=== PATIENT | female | born 1955 | race Caucasian/White ===

== ENCOUNTER 2016-12-06 15:13 | Inpatient (IN) ==
[2016-12-06] MEDS ORDERED: ONDANSETRON 4 MG/2 ML VIAL IV STA (16:31)
[2016-12-06] MEDS ORDERED: HYDROmorphone 2 MG/1 ML VIAL IV STA (16:31)
[2016-12-06] MEDS ORDERED: PANTOPRAZOLE 40 MG VIAL IV STA (16:31)
[2016-12-06] MEDS ORDERED: ALUM/MAG/SIMETH/LIDO VISC 1:1 30 ML BOTTLE PO STA (16:31)
[2016-12-06] MEDS ORDERED: SODIUM CHLORIDE 0.9% 1,000 ML IV STA (16:31)
[2016-12-06] MEDS ORDERED: KETOROLAC 30 MG/1 ML VIAL IV STA (16:31)
--- NOTE | 2016-12-06 16:36 | EKG Report ---
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
[2016-12-06 16:40] LABS: Basophils # 0.1 10*3/uL (0.0-0.2); Basophils % 0.6 % (0.0-0.8); Eosinophils # 0.3 10*3/uL (0.0-0.87); Eosinophils % 1.6 % (0.00-10.9); Hematocrit 33.3 VOL% (35.7-47.0); Hemoglobin 9.8 GM/DL (12.0-16.0); Immature Granulocytes % 0.6 %; Lymphocytes # 1.8 10*3/uL (1.4-4.0); Mean Corpuscular HGB Conc 29.4 GM/DL (32-36); Mean Corpuscular Hemoglobin 19 PG (27-34); Mean Corpuscular Volume 65.8 FL (87-102); Mean Platelet Volume 9.5 FL (9.6-12.0); Monocytes # 0.8 10*3/uL (0.11-0.8); Monocytes % 4.9 % (1.7-12.7); Neutrophils # 13.1 10*3/uL (1.4-7.4); Neutrophils % 81.3 % (38.7-73.9); Platelet Count 436 T/CUMM (130-400); Red Blood Count 5.06 MC/CUMM (3.8-5.5); Red Cell Distribution Width 18.2 % (9.3-17.3); White Blood Count 16.1 T/CUMM (4-12)
[2016-12-06] MEDS ORDERED: HYDROmorphone 2 MG/1 ML VIAL ONE (17:02)
[2016-12-06] MEDS ORDERED: ONDANSETRON 4 MG/2 ML VIAL ONE (17:02)
[2016-12-06] MEDS ORDERED: KETOROLAC 30 MG/1 ML VIAL ONE (17:02)
[2016-12-06] MEDS ORDERED: PANTOPRAZOLE 40 MG VIAL IV ONE (17:02)
[2016-12-06] MEDS ORDERED: ALUM/MAG/SIMETH/LIDO VISC 1:1 30 ML BOTTLE PO ONE (17:03)
[2016-12-06 17:08] LABS: Alanine Aminotransferase 16 U/L (13-56); Albumin 3.6 G/DL (3.4-5.0); Alkaline Phosphatase 71 U/L (45-117); Amylase 40 U/L (25-115); Aspartate Amino Transferase 10 U/L (0-37); Bilirubin,Total < 0.39 MG/DL (0.2-1.0); Blood Urea Nitrogen 10 MG/DL (7-18); Glucose 120 MG/DL (74-106); Magnesium 1.9 MG/DL (1.8-2.4); Osmolality,Calculated 282.1 MOS/KG (273-304); Potassium 3.8 MMOL/L (3.5-5.1); Sodium 142 MMOL/L (136-145); Total Protein 6.8 G/DL (6.4-8.3); Troponin I Only < 0.015 NG/ML (0.00-0.045)
--- NOTE | 2016-12-06 17:18 | Emergency Department Note ---
IMarko Emily, am scribing for, and in the presence of, Mario Lozano MD 16: 43. Marta Morales Charles R, MD, personally performed the services described in this documentation, ascribed by Ronda Zhu in my presence, and it is both accurate and complete . Arrival - Arrival Chief Complaint: Abdominal / Flank Pain Stated Complaint: feels faint, very sick ED Nursing Triage Note: C/O HAVING ABD.PAIN THAT STARTED TODAY AT 1100, + NAUSEA., + VOMITING., DEIES HAVING DIARRHEA., DENIES HAVING INCREASE TIME, DENIES HAVING CHILLS , ALSO C/O HAVING CHEST PAIN THAT STARTED TODAY AROUND 1100 , DENIES HAVING SOB., + DIAPHRESIS, Mode of Arrival: Wheelchair Limitations: No Limitations Source: Patient, Significant other Time Seen by Provider: 12/06/16 16:10 - History of Present Illness HPI Narrative: Pt is a 61 y/o female who came to ED with c/o abdomen pain with N/V that started this morning around 10-11. Pt reports pain is around the umbilical region mainly and has some constipation. Pt has associated sxs of mild left, lower back pain, and has been straining with her emesis, in which having mild blood in vomit, her spouse. Pt denies hx of kidney stones, dysuria or hematuria. PMHx of NIDDM. Onset (ago): hour(s) Consistency: constant Severity: mild, moderate Severity scale (1-10): 4 Quality: aching Allergies/Adverse Reactions: Allergies Allergy/AdvReac Type Severity Reaction Status Date / Time No Known Allergies Allergy Unverified 12/06/16 15:24 Home Medications: Home Medications Medication Instructions Recorded Confirmed Type Cetirizine Tab [ZyrTEC Tab] 10 mg PO DAILY PRN 12/06/16 12/06/16 History Citalopram Hydrobromide 10 mg PO QPM 12/06/16 12/06/16 History [Citalopram HBr] Ibuprofen Tab [Motrin Tab] 200 mg PO BID 12/06/16 12/06/16 History metFORMIN [Glucophage] 500 mg PO BID W/MEALS 12/06/16 12/06/16 History Review of System - Review of System 12 point system: reviewed and no additional remarkable complaints except as stated - Review of System Constitutional: Absent: chills, fever Respiratory: Absent: respiratory distress Cardiovascular: Absent: chest pain Gastrointestinal: Present: abdominal pain, nausea, vomiting (with mild blood from straining), constipation. Absent: diarrhea Genitourinary female: Absent: dysuria, hematuria Musculoskeletal: Absent: arm pain, back pain, leg pain, neck pain Skin: Absent: rash Neurological: Absent: headache Medical,Surgical,& Family Hx - Medical History Endocrine: History of: Diabetes Mellitus (NIDDM) - Surgical History Surgical History: noncontributory - Family History Family History: noncontributory - Social History Smoking Status: Smoker, status unknown Frequency of Alcohol Use: None Type of Drug Use: None Marital Status: Lives With:: Spouse Functional capacity: independent ambulation Exam Vital Signs: Vital Signs Temperature 97.5 F L 12/06/16 16:40 Pulse Rate 95 H 12/06/16 16:40 Respiratory Rate 16 12/06/16 16:40 Blood Pressure 92/58 12/06/16 16:40 O2 Sat by Pulse Oximetry 97 12/06/16 15:20 - General General appearance: alert, in no apparent distress - Head Head exam: Present: atraumatic, normocephalic - Eye Eye exam: Present: PERRL, EOMI - ENT ENT exam: Present: mucous membranes moist. Absent: mucous membranes dry - Neck Neck exam: Present: full ROM. Absent: tenderness - Chest Chest inspection: Present: symmetric chest wall rise. Absent: tenderness - Respiratory Respiratory exam: Present: normal lung sounds bilaterally. Absent: respiratory distress - Cardiovascular Cardiovascular exam: Present: regular rate, normal rhythm, normal heart sounds - Abdominal Exam Abdominal exam: Present: soft, tenderness (generalized tenderness), normal bowel sounds. Absent: distention, guarding, rebound - Extremities Exam Extremities exam: Present: full ROM. Absent: tenderness, pedal edema - Back Exam Back exam: Present: full ROM, tenderness (bilateral lower flank pain; more so on left) - Neurological Exam Neurological exam: Present: alert, oriented X3, CN II-XII intact. Absent: motor sensory deficit - Psychiatric Psychiatric exam: Present: normal affect, normal mood - Skin Skin exam: Present: warm, dry Course - Consultations Consultation #1: Hospitalist will admit patient Time: 18:14 Results - Labs CBC & BMP: 12/06/16 16:28 12/06/16 16:28 Lab Results: I have reviewed the patients labs Labs: Laboratory Tests 12/06/16 16:28 WBC 16.1 H Hgb 9.8 L Hct 33.3 L MCV 65.8 L MCH 19 L MCHC 29.4 L RDW 18.2 H Plt Count 436 H MPV 9.5 L Neut % (Auto) 81.3 H Lymph % (Auto) 11.0 L Neut # (Auto) 13.1 H - Diagnostic Findings Procedure: CT Abdomen and Pelvis: image reviewed by me, report reviewed by me ( Enteritis with some small bowel dilatation inflammation small bowel) Critical Care Time Critical Care Time: Yes Total Critical Care Time: 60 Disposition Clinical Impression: Gastroenteritis, Abdominal pain, Nausea & vomiting, Hypotension, Volume depletion, Dehydration, Leukocytosis Case discussed with: patient, patient's family Disposition: Still a Patient Condition: Guarded Time of Disposition: 18:15
--- NOTE | 2016-12-06 17:25 | CT Report ---
CT abdomen pelvis wo con Indication: Abdominal pain/pelvic pain lower midline Comparison: None. Technique: CT of the abdomen and pelvis was performed without administration of intravenous contrast. Coronal and sagittal reformatted images were additionally created and submitted for review. The total DLP is 383 mGy*cm. Dose reduction: This CT exam was performed using one or more of the following dose reduction techniques: Automated exposure control, automated adjustment of the mA and/or KV according to patient size, or use of iterative reconstruction technique. Findings: Very minimal posterior basilar dependent atelectatic changes are noted bilaterally. Lung bases are otherwise clear. There is no pleural or pericardial effusion. ABDOMEN: Liver/Gallbladder: No intrahepatic or extra hepatic biliary ductal dilatation. Cholecystectomy. Unenhanced liver otherwise appears grossly within normal limits. Spleen: No acute findings. Pancreas: No acute findings. Adrenals: Within normal limits in appearance. Kidneys: Both kidneys are symmetric in size with no evidence of nephrolithiasis or hydronephrosis. There are several punctate calcific densities at the left hemipelvis in the vicinity of the left distal ureter but no hydroureter is evident, and this may represent phlebolith. Otherwise, no definite ureteral bladder calculi are identified. Bowel/mesentery: There is an short segment area of prominent small bowel dilatation within the left hemiabdomen measuring up to 3.9 cm. This area demonstrates minimal surrounding mesenteric fat stranding suggestive of high-grade partial obstruction, ileus or a focal infectious/inflammatory enteritis. There is no free fluid/air within the abdomen. There is no mesenteric adenopathy. The appendix appears normal. There is no free fluid/air within the abdomen. Moderate stool throughout the colon suggesting a degree of fecal stasis/constipation. Retroperitoneum: No evidence of aortic aneurysm or significant retroperitoneal adenopathy. PELVIS: No free fluid. Bladder appears grossly unremarkable. Uterus and ovaries appear grossly within normal limits for CT technique. No adenopathy. BONES: No acute or suspicious osseous abnormalities are identified. Moderate degenerative changes with disc space loss at L4-5 L5-S1 and facet arthropathy are noted. IMPRESSION: 1. Short segment moderate dilatation of small bowel within the left hemiabdomen may represent focal infectious/inflammatory enteritis changes, partial small bowel obstruction, focal ileus or, less likely, a closed loop obstruction. There is no definite transition point. Close clinical and imaging follow-up is recommended. 2. No other acute abnormality the abdomen/pelvis. 3. Multiple punctate calcific densities in the vicinity of the distal left ureter within the left hemipelvis without hydronephrosis are hydroureter may represent phleboliths. This can be assessed on follow-up studies for stability. 12/06/2016 5:13 PM PROCEDURE INTERPRETED AT [facility] DEPARTMENT OF RADIOLOGY Final Report Signed by: Yan Tabares
--- NOTE | 2016-12-06 17:47 | XRay Report ---
XR abdomen 2V Clinical Information: Midline lower abdominal pain Comparison: None Findings: Moderate stool is noted throughout the colon. There is suggestion of also mildly dilated small bowel within the left hemiabdomen with a few differential air-fluid levels which may represent ileus, enteritis or partial small bowel obstruction changes. There is no free air. Scattered fecal material is noted throughout colon, which is otherwise nondilated. No abnormal focal soft tissue masses or calcific densities are identified in the abdomen or pelvis. Lung bases appear predominantly clear. There is no acute osseous abnormality. No suspicious osseous lesions are identified. Impression: Possible findings of ileus versus partial small bowel obstruction. Collateral CT imaging dated same day A mild degree of fecal stasis/constipation is also suspected. PROCEDURE INTERPRETED AT [facility] DEPARTMENT OF RADIOLOGY Final Report Signed by: Yan Tabares
[2016-12-06] MEDS ORDERED: LEVOFLOXACIN INJ 750 MG in PREMIX 1 EACH IV STA (18:11)
--- NOTE | 2016-12-06 18:49 | Hospitalist History & Physical ---
Assessment and Plan - Time spent with patient Time spent with patient: Greater than 30 minutes Time spent discussing smoking cessation with patient: 3 to 10 minutes (1) Abdominal pain Status: Acute Assessment and plan: She has mid abdominal pain with associated nausea, vomiting, diarrhea. Abnormal CT scan as noted with differential of enteritis, partial small bowel obstruction, focal ileus. At this time will hold her n.p.o. and hydrate. We will begin empiric IV antibiotics. Will obtain stool studies. Will provide parenteral antiemetics and analgesics as well as aggressive crystalloid resuscitation. She states that she may have noted some red blood in her vomitus therefore will place her on IV proton pump inhibitor, follow-up laboratory studies in the a.m. and consider formal consultation with gastroenterology and/or general surgery. Current Visit: Yes (2) Nausea & vomiting Status: Acute Assessment and plan: See plans as noted above. Current Visit: Yes (3) Diarrhea Status: Acute Assessment and plan: We will obtain stool studies for appropriate diagnostic testing and culture. Will begin empiric IV antibiotics consisting of ciprofloxacin and Flagyl. Current Visit: Yes (4) Diabetes mellitus Status: Chronic Assessment and plan: We will hold her oral hypoglycemic agent at this time and place on Accu-Cheks with sliding scale only. Current Visit: Yes Qualifiers: Diabetes mellitus type: type 2 History of Present Illness Chief complaint: Abdominal pain, nausea, vomiting, diarrhea History of present illness: Ms. Lyn is a 61 year old white female who states about 10 AM today she began having some mid abdominal discomfort with associated nausea and vomiting and states that she may have had a small amount of bright red blood noted in that. She had some loose nonbloody stool as well but denied any fever, chills, chest pain, shortness breath, palpitations, dysuria, hematuria, urinary frequency urgency incontinence, focal motor weakness or loss of sensation. She has been taking some nonsteroidal anti-inflammatory drugs for arthritis but denies any antibiotic ingestion since being treated for upper respiratory tract infection in July of this year. She has had prior abdominal surgery to include cholecystectomy as well as resection of colon secondary to diverticulitis with colostomy with subsequent reversal. Her primary care provider is Dr. Julián Preston. Home Medications Medication Instructions Recorded Confirmed Type Cetirizine Tab [ZyrTEC Tab] 10 mg PO DAILY PRN 12/06/16 12/06/16 History Citalopram Hydrobromide 10 mg PO QPM 12/06/16 12/06/16 History [Citalopram HBr] Ibuprofen Tab [Motrin Tab] 200 mg PO BID 12/06/16 12/06/16 History metFORMIN [Glucophage] 500 mg PO BID W/MEALS 12/06/16 12/06/16 History Allergies Allergy/AdvReac Type Severity Reaction Status Date / Time No Known Allergies Allergy Unverified 12/06/16 15:24 Medical,Surgical,& Family Hx - Medical History Cardio: No history of: Hypertension Endocrine: History of: Diabetes Mellitus (NIDDM) Gastrointestinal: History of: Diverticulitis/ Diverticulosis - Surgical History Abdominal Surgeries: Surgical HX of: Abdominal Surgery (She has had colon resection with colostomy with subsequent reversal), Cholecystectomy - Family History Family History: noncontributory - Social History Smoking Status: Current every day smoker Have you smoked in the last 12 months: Yes Time spent discussing smoking cessation with patient: 3 to 10 minutes Frequency of Alcohol Use: None Type of Drug Use: None Marital Status: Lives With:: Parent Functional capacity: independent ambulation 12 point system: reviewed and no additional remarkable complaints except as stated Exam - Constitutional Vitals: Period Temp Pulse Resp BP Sys/Lubin Pulse Ox Last 24 Hr 97.5 F-97.5 F 95-95 16-16 92-92/58-58 97 General appearance: no acute distress - Head Head exam: Present: normocephalic, atraumatic - Eye Eye exam: Present: EOMI. Absent: scleral icterus Pupils: Present: AC - ENT ENT exam: Present: normal oropharynx - Neck Neck exam: Present: normal inspection. Absent: lymphadenopathy, meningismus, tenderness, thyromegaly - Respiratory Respiratory exam: Present: clear to auscultation bilaterally. Absent: rales, rhonchi, wheezes - Cardiovascular Cardiovascular exam: Present: regular rate and rhythm. Absent: gallop, JVD, systolic murmur, tachycardia - GI/Abdominal GI/Abdominal exam: Present: normal bowel sounds, tenderness (She has mild tenderness at the superior aspect of her midline abdominal incision; no hernia detected this time), soft. Absent: distended, guarding, rebound - Extremities Exam Extremities exam: Absent: calf tenderness, edema - Back Exam Back exam: Present: normal inspection - Neurological Exam Neurological exam: Present: alert, oriented X3, CN II-XII intact. Absent: motor sensory deficit - Psychiatric Psychiatric exam: Present: normal affect, normal mood. Absent: agitated, anxious - Skin Skin exam: Present: warm, dry. Absent: erythema, petechiae, rash Results - Labs CBC & BMP: 12/06/16 16:28 12/06/16 16:28 Lab Results: I have reviewed the past 24 hour labs - EKG EKG shows: sinus rhythm - Diagnostic Findings Procedure: KUB x-ray: report reviewed by me, CT: report reviewed by me
[2016-12-06] MEDS ORDERED: SODIUM CHLORIDE 0.9% 1,000 ML IV ONE (18:54)
[2016-12-06] MEDS ORDERED: LEVOFLOXACIN INJ 150 ML IV ONE (18:55)
[2016-12-06 19:10] LABS: Basophils # 0.1 10*3/uL (0.0-0.2); Basophils % 0.5 % (0.0-0.8); Eosinophils # 0.2 10*3/uL (0.0-0.87); Eosinophils % 1.5 % (0.00-10.9); Immature Granulocytes % 0.5 %; Immature Granulocytes Absolute 0.07 #; Lymphocytes # 1.7 10*3/uL (1.4-4.0); Lymphocytes % 11.2 % (21.3-54.2); Mean Corpuscular Hemoglobin 19 PG (27-34); Mean Platelet Volume 9.9 FL (9.6-12.0); Monocytes # 0.6 10*3/uL (0.11-0.8); Monocytes % 4.2 % (1.7-12.7); Neutrophils # 12.2 10*3/uL (1.4-7.4); Neutrophils % 82.1 % (38.7-73.9); Platelet Count 420 T/CUMM (130-400); Red Blood Count 4.63 MC/CUMM (3.8-5.5); Red Cell Distribution Width 18.3 % (9.3-17.3); White Blood Count 14.9 T/CUMM (4-12)
[2016-12-06 19:16] LABS: Apearance,Urine CLEAR (Clear); Bilirubin,Urine Negative (Negative); Blood, Urine Negative (Negative); Glucose,Urine (UA) Negative (Negative); Hyaline Casts,Urine 4 /LPF (0-3); Ketones,Urine Negative (Negative); Mucus,Urine Occasional /LPF (Occasional); Nitrite,Urine Negative (Negative); Protein,Urine Negative; RBC,Urine <1 /HPF (0-4); Squamous Epithelial Cell,Urine Occasional /HPF (0-10); Urine Color Yellow (Yellow); Urine Specific Gravity 1.013 (1.001-1.035); Urine Urobilinogen < 2.0 EU/DL (0.2-1.0); WBC,Urine 2 /HPF (0-6)
[2016-12-06 19:18] LABS: Barbiturates Screen,Urine Negative (Negative); Benzodiazepines Screen,Urine Negative (Negative); Cannabinoid Screen,Urine Negative (Negative); Opiate Screen,Urine Positive (Negative); Phencyclidine Screen,Urine Negative (Negative)
[2016-12-06 20:03] LABS: Vitamin B12 275 PG/ML (211-911)
[2016-12-06] MEDS ORDERED: GLUCAGON 1 MG VIAL IM PRN (20:08)
[2016-12-06] MEDS ORDERED: DEXTROSE 50% 25 GM/50 ML VIAL IV PRN (20:08)
[2016-12-06 20:16] LABS: Sedimentation Rate-Westergren 35 MM/HR (0-30)
[2016-12-06] MEDS: metroNIDAZOLE INJ 500 MG in PREMIX 1 EACH IV SCH (21:28)
[2016-12-06] MEDS: DEXT 5% NACL 0.45% KCL 20 MEQ 20 MEQ/1,000 ML BAG IV SCH (21:28)
[2016-12-06] MEDS: MORPHINE 2 MG/1 ML SYRINGE IV PRN (21:29)
[2016-12-06] MEDS: ONDANSETRON 4 MG/2 ML VIAL IV PRN (21:29)
[2016-12-06] MEDS: ENOXAPARIN 40 MG/0.4 ML SYRINGE SUBCUT SCH (21:30)
[2016-12-06] MEDS: CIPROFLOXACIN INJ 400 MG in PREMIX 1 EACH IV SCH (23:31)
[2016-12-07] MEDS: INSULIN LISPRO 100 UNIT/ML SUBCUT SCH ×4 (00:56→20:13)
[2016-12-07] MEDS: metroNIDAZOLE INJ 500 MG in PREMIX 1 EACH IV SCH ×3 (04:39→20:13)
[2016-12-07 05:35] LABS: Basophils # 0.1 10*3/uL (0.0-0.2); Basophils % 0.6 % (0.0-0.8); Eosinophils # 0.3 10*3/uL (0.0-0.87); Eosinophils % 3.5 % (0.00-10.9); Hematocrit 27.2 VOL% (35.7-47.0); Hemoglobin 7.9 GM/DL (12.0-16.0); Immature Granulocytes % 0.3 %; Immature Granulocytes Absolute 0.03 #; Lymphocytes # 2.6 10*3/uL (1.4-4.0); Lymphocytes % 28.6 % (21.3-54.2); Mean Corpuscular Hemoglobin 19 PG (27-34); Mean Corpuscular Volume 66.7 FL (87-102); Mean Platelet Volume 9.8 FL (9.6-12.0); Monocytes # 0.6 10*3/uL (0.11-0.8); Monocytes % 6.6 % (1.7-12.7); Neutrophils # 5.4 10*3/uL (1.4-7.4); Neutrophils % 60.4 % (38.7-73.9); Platelet Count 352 T/CUMM (130-400); Red Blood Count 4.08 MC/CUMM (3.8-5.5); White Blood Count 8.9 T/CUMM (4-12)
[2016-12-07 05:51] LABS: Calcium 7.7 MG/DL (8.5-10.1); Osmolality,Calculated 280.3 MOS/KG (273-304); Potassium 4.3 MMOL/L (3.5-5.1)
--- NOTE | 2016-12-07 08:55 | Hospitalist Progress Note ---
Assessment and Plan (1) Abdominal pain Status: Acute Assessment and plan: Patient reports improvement of an abdominal pain is requested to eat; however we will not start oral intake at this time. The patient reports that she had multiple bowel movements the last of the staff reports that the patient actually did not and that they are still in need of a stool specimen. Either way we have already consulted GI to evaluate the patient. We will follow their recommendations Current Visit: Yes (2) Dehydration Status: Acute Assessment and plan: We will continue volume replacement as previously ordered. Current Visit: Yes (3) Nausea & vomiting Status: Acute Assessment and plan: Continue antiemetics as previously ordered. Current Visit: Yes (4) Anemia Status: Acute Assessment and plan: Noted decrease in hemoglobin and hematocrit which is noted at 7.9 and 27.2 down from 9.0 and 31.0. Current Visit: Yes Hospitalist: Subjective Interval history: Patient seen and examined; chart reviewed. Patient reports that she is feeling better and reports that she had 2 bowel movements on last night; however staff reports that the patient did not have a bowel movement last night and that they are still in need of stool specimens. Exam - Constitutional Vitals: Period Temp Pulse Resp BP Sys/Lubin Pulse Ox Last 24 Hr 97.5 F-98.2 F 65-95 16-21 91-124/55-67 96-98 General appearance: normal weight, no acute distress - Head Head exam: Present: normal inspection, normocephalic - Eye Eye exam: Present: EOMI, conjunctival injection Pupils: Present: AC, normal accommodation - ENT ENT exam: Present: normal exam - Neck Neck exam: Absent: lymphadenopathy, meningismus, thyromegaly - Respiratory Respiratory exam: Present: clear to auscultation bilaterally. Absent: rales, rhonchi, stridor, wheezes - Cardiovascular Cardiovascular exam: Present: regular rate and rhythm. Absent: carotid bruit, diastolic murmur, gallop, JVD, rubs, tachycardia - GI/Abdominal GI/Abdominal exam: Present: normal bowel sounds, soft. Absent: tenderness - Extremities Exam Extremities exam: Present: normal inspection, normal capillary refill, full ROM , edema - Back Exam Back exam: Present: normal inspection - Neurological Exam Neurological exam: Present: alert, oriented X3, CN II-XII intact - Psychiatric Psychiatric exam: Present: normal affect, normal mood - Skin Skin exam: Present: normal color, warm, dry Results - Labs CBC & BMP: 12/07/16 04:34 12/07/16 04:34 Lab Results: I have reviewed the past 24 hour labs
[2016-12-07] MEDS: CIPROFLOXACIN INJ 400 MG in PREMIX 1 EACH IV SCH ×2 (10:20→21:16)
--- NOTE | 2016-12-07 10:21 | Gastrointestinal Consult Note ---
Assessment and Plan (1) Nausea & vomiting Status: Acute Assessment and plan: 12/07-admitted with sudden onset of intractable nausea and vomiting and upper abdominal pain, now all resolved at this time. Prior history of colectomy with colostomy and reversal in 2010. History of abdominal hernia repair 2 years ago. No reports of melena or hematochezia. Drop noted in hemoglobin from baseline on admission. History of ibuprofen use. Start clear liquid diet and monitor H&H. Check stools for occult blood. Further stool cultures pending. Start clear liquid diet. Plan an addendum to follow Dr. Leos. Current Visit: Yes History of Present Illness Chief complaint: Nausea vomiting History of present illness: Ms. Lyn is a 61 year old female who was admitted to the hospital on yesterday after sudden onset of intractable nausea and vomiting with upper abdominal pain. Patient is a fair historian therefore information is also obtained from chart review. Patient states that she woke up on yesterday and was not feeling well. She was having some vague upper abdominal pain however shortly after this midmorning she began having onset of nausea with intractable vomiting she denies any coffee-ground emesis or hematemesis associated with this however noted on admission that she reported some blood streaking in her vomit on yesterday. She denies any fever, chills or night sweats. Denies being exposed to anyone who has been ill recently. He denies any melena or hematochezia. She states that she is having good bowel movements and has had 3 bowel movements in the last 24 hours however denies diarrhea stools. She has a prior history of cholecystectomy, and in 2010 she had an episode of diverticulitis that required colectomy with colostomy which was reversed 3 months after surgery which was done at [facility] by Dr. Rich.. She also has had umbilical hernia repair approximately 2 years ago in [place]. She denies any recent weight loss. She states that the nausea and vomiting has resolved today. She is unable to recall her last endoscopy however denies a history of peptic ulcer disease. She does admit to taking NSAIDs for her general arthritis pain. But denies increased frequency or daily use of this. Denies history of alcohol use and currently smokes daily. On admission she had a noncontrasted abdominal CT which showed short segment moderate dilation of small bowel with left heme abdomen possibly representing infectious/ inflammatory enteritis, partial SBO, or focal ileus. No other acute findings noted. Stool for occult blood is pending. She is noted to have a drop in her hemoglobin from admission at 9 down to 7.9 and absence of any overt bleeding at this time. Denies any prior history of GI bleeding. Home Medications Medication Instructions Recorded Confirmed Type Cetirizine Tab [ZyrTEC Tab] 10 mg PO DAILY PRN 12/06/16 12/06/16 History Ibuprofen Tab [Motrin Tab] 200 mg PO BID 12/06/16 12/06/16 History metFORMIN [Glucophage] 500 mg PO BID W/MEALS 12/06/16 12/06/16 History Escitalopram [Lexapro] 10 mg PO DAILY 12/07/16 12/07/16 History Allergies Allergy/AdvReac Type Severity Reaction Status Date / Time No Known Allergies Allergy Unverified 12/06/16 15:24 Medical,Surgical,& Family Hx - Medical History Cardio: No history of: Hypertension Psychological: History of: Anxiety Disorders, Depression Endocrine: History of: Diabetes Mellitus (NIDDM) No history of: Thyroid Disorder, Endocrine Cancer, Endocrine Problems Respiratory: History of: Bronchitis No history of: Asthma, COPD, Intubation, Obstructive Sleep Apnea, Pulmonary Embolism, Pulmonary Hypertension, Pneumonia, Lung Cancer, Respiratory Problems Gastrointestinal: History of: Bowel Obstruction, Diverticulitis/ Diverticulosis No history of: Clostridium Difficile, Crohn's Disease, Esophageal Varices, GERD, Gastrointestinal Bleed, Hemorrhoids, Hematochezia, Hepatitis, Liver Problems, Pancreatitis, Polyps, Ulcerative Colitis, Gastrointestinal Cancer, GI Problems Hematology: History of: Anemia No history of: Blood Transfusion Reaction, Bleeding Problems, Sickle Cell Disease, Hematologic Cancer, Blood Disorders - Surgical History Cardiac Surgeries: Patient Denies: Femoral-Popliteal Bypass Graft, Cardiac Catheterization, Cardiac Surgery, Carotid Endarterectomy, Internal Defibrillator, Vascular Access Devices Thoracic Surgeries: Patient denies;: Organ Transplant, Lobectomy HEENT Surgeries: Patient denies: Carotid Endarterectomy, Thyroid Surgery Abdominal Surgeries: Surgical HX of: Abdominal Surgery (She has had colon resection with colostomy with subsequent reversal), Cholecystectomy, Colonoscopy Patient denies: Gastric Bypass Surgery, Hernia Repair, Splenectomy Reproductive Surgeries: Patient denies;: Breast Surgery, Section, Dilation and Curettage, Gynecologic Surgery, Hysterectomy, Tubal Ligation - Family History Family History: Denies;: Family Anesthesia Reaction, Family Cancer, Family Diabetes, Family Heart Disease, Family Hematology, Family Hypertension, Family Psychiatric Problems, Family Stroke, Additional Family History - Social History Smoking Status: Current every day smoker Frequency of Alcohol Use: None Type of Drug Use: None 12 point system: reviewed and no additional remarkable complaints except as stated - Constitutional Constitutional: Present: as per HPI - EENT Eyes: Present: as per HPI Ears: Present: as per HPI Nose, mouth and throat: Present: as per HPI - Cardiovascular Cardiovascular: Present: as per HPI - Respiratory Respiratory: Present: as per HPI - Gastrointestinal Gastrointestinal: Present: as per HPI, abdominal pain, nausea, vomiting - Genitourinary Genitourinary: Present: as per HPI - Musculoskeletal Musculoskeletal: Present: as per HPI - Neurological Neurological: Present: as per HPI - Psychiatric Psychiatric: Present: as per HPI - Endocrine Endocrine: Present: as per HPI - Hematologic/Lymphatic Hematologic/Lymphatic: Present: as per HPI Exam - Constitutional Vitals: Period Temp Pulse Resp BP Sys/Lubin Pulse Ox Last 24 Hr 97.5 F-98.2 F 65-95 16-21 91-124/55-67 96-98 General appearance: normal weight, no acute distress - Head Head exam: Present: normal inspection, normocephalic - Eye Eye exam: Present: other (Lids and conjunctive are unremarkable). Absent: scleral icterus - ENT ENT exam: Present: normal exam, normal oropharynx - Neck Neck exam: Present: normal inspection - Respiratory Respiratory exam: Present: clear to auscultation bilaterally. Absent: rales, rhonchi, wheezes - Cardiovascular Cardiovascular exam: Present: regular rate and rhythm. Absent: diastolic murmur , JVD, systolic murmur - GI/Abdominal GI/Abdominal exam: Present: normal bowel sounds, soft. Absent: ascites, distended, mass, organomegaly, tenderness - Extremities Exam Extremities exam: Present: normal inspection, full ROM - Back Exam Back exam: Present: normal inspection - Neurological Exam Neurological exam: Present: alert, oriented X3 - Psychiatric Psychiatric exam: Present: normal affect, normal mood - Skin Skin exam: Present: normal color, warm, dry Results - Labs CBC & BMP: 12/07/16 04:34 12/07/16 04:34 Lab Results: I have reviewed the past 24 hour labs - Diagnostic Findings Procedure: CT Abdomen and Pelvis: report reviewed by me
[2016-12-07] MEDS: PANTOPRAZOLE 40 MG VIAL IV SCH (10:22)
[2016-12-07] MEDS: MORPHINE 2 MG/1 ML SYRINGE IV PRN ×3 (10:25→21:24)
[2016-12-07] MEDS: DEXT 5% NACL 0.45% KCL 20 MEQ 20 MEQ/1,000 ML BAG IV SCH ×3 (11:28→20:13)
[2016-12-07] MEDS: ONDANSETRON 4 MG/2 ML VIAL IV PRN ×2 (16:39→21:16)
[2016-12-07] MEDS: metFORMIN 500 MG TABLET PO SCH (18:08)
[2016-12-07] MEDS: ENOXAPARIN 40 MG/0.4 ML SYRINGE SUBCUT SCH (20:14)
[2016-12-07 20:37] LABS: % Iron Saturation 9.6 % (18-50)
[2016-12-07] MEDS: ACETAMINOPHEN 325 MG TABLET PO PRN (21:18)
[2016-12-08] MEDS: INSULIN LISPRO 100 UNIT/ML SUBCUT SCH ×4 (01:44→19:11)
[2016-12-08] MEDS: DEXT 5% NACL 0.45% KCL 20 MEQ 20 MEQ/1,000 ML BAG IV SCH ×3 (05:18→20:11)
[2016-12-08] MEDS: metroNIDAZOLE INJ 500 MG in PREMIX 1 EACH IV SCH ×3 (05:18→20:11)
[2016-12-08 07:56] LABS: Basophils # 0.1 10*3/uL (0.0-0.2); Basophils % 0.7 % (0.0-0.8); Eosinophils # 0.3 10*3/uL (0.0-0.87); Eosinophils % 4.6 % (0.00-10.9); Hematocrit 28.2 VOL% (35.7-47.0); Hemoglobin 8.1 GM/DL (12.0-16.0); Immature Granulocytes % 0.5 %; Immature Granulocytes Absolute 0.04 #; Lymphocytes % 27.8 % (21.3-54.2); Mean Corpuscular HGB Conc 28.7 GM/DL (32-36); Mean Corpuscular Hemoglobin 20 PG (27-34); Mean Platelet Volume 10.3 FL (9.6-12.0); Monocytes # 0.6 10*3/uL (0.11-0.8); Monocytes % 8.3 % (1.7-12.7); Neutrophils # 4.3 10*3/uL (1.4-7.4); Neutrophils % 58.1 % (38.7-73.9); Platelet Count 354 T/CUMM (130-400); Red Blood Count 4.15 MC/CUMM (3.8-5.5); Red Cell Distribution Width 17.9 % (9.3-17.3); White Blood Count 7.3 T/CUMM (4-12)
[2016-12-08 08:05] LABS: Hypochromasia 1+
[2016-12-08 08:06] LABS: Microcytosis 2+; Ovalocytes Slight; Platelet Estimate Normal
--- NOTE | 2016-12-08 08:11 | Hospitalist Progress Note ---
Assessment and Plan (1) Abdominal pain Status: Acute Assessment and plan: Associated iron deficiency anemia with CT scan of the abdomen suggesting small bowel changes of inflammation or local obstruction. Current Visit: Yes (2) Diabetes mellitus Status: Chronic Assessment and plan: Use of metformin alone with minimal in house elevations of CBG. Current Visit: Yes Qualifiers: Diabetes mellitus type: type 2 Hospitalist: Subjective Interval history: 61-year-old female with history of previous colon resection colostomy with subsequent takedown presented with acute nausea vomiting and predominantly by her description left lower quadrant discomfort. CT scan of the abdomen demonstrated thickening of the small bowel loop contained in the left lower pelvic region with potential inflammatory changes. She has had no observed bleeding but has had a gradual decrease in hemoglobin and hematocrit since admission and has a marked decrease in MCV and also iron profile consistent with iron deficiency anemia. She has been seen by gastroenterology and is anticipated for further evaluation. This morning the patient complains of mild left lower quadrant discomfort no diarrhea no vomiting. His complaints of headache as a separate and isolated finding Exam - Constitutional Vitals: Period Temp Pulse Resp BP Sys/Lubin Pulse Ox Last 24 Hr 97.1 F-98.2 F 68-93 18-20 96-119/49-87 95-98 General appearance: normal weight - Respiratory Respiratory exam: Present: clear to auscultation bilaterally. Absent: rales, rhonchi, wheezes - Cardiovascular Cardiovascular exam: Present: regular rate and rhythm - GI/Abdominal GI/Abdominal exam: Present: normal bowel sounds, tenderness (Left lower quadrant ) - Extremities Exam Extremities exam: Absent: edema - Neurological Exam Neurological exam: Present: alert, oriented X3 Results - Labs CBC & BMP: 12/08/16 06:29 12/08/16 06:29
[2016-12-08 08:16] LABS: Alanine Aminotransferase 12 U/L (13-56); Albumin 2.9 G/DL (3.4-5.0); Alkaline Phosphatase 57 U/L (45-117); Aspartate Amino Transferase 14 U/L (0-37); Bilirubin,Total < 0.39 MG/DL (0.2-1.0); Blood Urea Nitrogen 5 MG/DL (7-18); Calcium 8.3 MG/DL (8.5-10.1); Glucose 114 MG/DL (74-106); Osmolality,Calculated 280.1 MOS/KG (273-304); Phosphorous 3.8 MG/DL (2.5-4.9); Potassium 4.6 MMOL/L (3.5-5.1); Sodium 142 MMOL/L (136-145); Total Protein 5.6 G/DL (6.4-8.3)
[2016-12-08] MEDS: ONDANSETRON 4 MG/2 ML VIAL IV PRN ×2 (08:51→20:12)
[2016-12-08] MEDS: metFORMIN 500 MG TABLET PO SCH ×2 (08:52→16:45)
[2016-12-08] MEDS: MORPHINE 2 MG/1 ML SYRINGE IV PRN ×3 (08:52→20:12)
[2016-12-08] MEDS: PANTOPRAZOLE 40 MG VIAL IV SCH (08:58)
[2016-12-08] MEDS: CIPROFLOXACIN INJ 400 MG in PREMIX 1 EACH IV SCH ×2 (08:59→21:21)
[2016-12-08] MEDS ORDERED: PROPOFOL 200 MG/20 ML VIAL IV ONE (13:15)
[2016-12-08] MEDS ORDERED: LIDOCAINE 2% 5 ML VIAL ONE (13:15)
--- NOTE | 2016-12-08 13:17 | History and Physical Update ---
History and Physical Update - History and Physical H&P was reviewed, the patient examined and there: are no changes in the patients condition since last H&P was completed. - Physical Exam Mental Status: alert and oriented Heart: regular rate and rhythm Lung: clear to auscultation Abdomen: within normal limits Vitals: within normal limits
--- NOTE | 2016-12-08 13:24 | Operative Note ---
Date of procedure: 12/08/16 Pre-op diagnosis: Hematemesis, iron deficiency anemia Procedure: Procedure: Esophagogastroduodenoscopy Brief clinical abstract: Patient is a 61-year-old female admitted with intractable nausea/vomiting which has improved. She had a single episode with scant hematemesis with this and no further evident bleeding. She is noted to be iron deficient with hemoglobin in the 8 range. She denies other gross bleeding. Indication for procedure: Recent hematemesis, iron deficiency anemia Endoscopic findings:[After informed consent was obtained, the patient was placed in the left lateral decubitus position. The gastroscope was inserted in the upper esophagus under direct vision with no resistance encountered. Esophageal mucosa appeared normal with squamocolumnar junction sharply demarcated above a small hiatal hernia. No abnormalities were noted at this level. The endoscope was advanced in the stomach which was carefully examined including retroflexed view of the cardia and fundus with no abnormality seen. The pyloric channel, duodenal bulb, second and third portion of the duodenum were normal. The endoscope was withdrawn with reexamination performed and patient appeared to tolerate the procedure well. Impression: Small hiatal hernia-otherwise normal EGD Recommendations: Trial with clear liquid diet. Given recent nausea/vomiting, would hold on doing colonoscopy bowel prep for today. If tolerates diet could possibly be discharged tomorrow and plan for outpatient colonoscopy. Alternative plan would be to do colonoscopy as inpatient on . Anesthesia: MAC Surgeon / Physician: Logan Leos Estimated blood loss: none Specimens: none sent Condition: stable Disposition: post procedure unit Results - Labs CBC & BMP: 12/08/16 06:29 12/08/16 06:29 Discharge Plan - Discharge Medications No Action metFORMIN [Glucophage] 500 mg PO BID W/MEALS Cetirizine Tab [ZyrTEC Tab] 10 mg PO DAILY PRN PRN Reason: Allergy Symptoms Ibuprofen Tab [Motrin Tab] 200 mg PO BID Escitalopram [Lexapro] 10 mg PO DAILY - Follow Up or Referral - Forms/Instructions
--- NOTE | 2016-12-08 13:27 | Anesthesia Post-Op ---
Anesthesia Post OP - Post Ansesthetic Evaluation Patient seen in post op: Yes Resp: within normal limits CV: within normal limits Mental: within normal limits Temp: within normal limits [id number]: within normal limits Nausea and Vomiting: within normal limits Pain: within normal limits
[2016-12-08] MEDS: ACETAMINOPHEN 325 MG TABLET PO PRN (16:54)
[2016-12-08] MEDS: ENOXAPARIN 40 MG/0.4 ML SYRINGE SUBCUT SCH (20:12)
[2016-12-09] MEDS: INSULIN LISPRO 100 UNIT/ML SUBCUT SCH ×3 (01:44→12:00)
[2016-12-09] MEDS: metroNIDAZOLE INJ 500 MG in PREMIX 1 EACH IV SCH ×2 (03:29→13:00)
[2016-12-09] MEDS: DEXT 5% NACL 0.45% KCL 20 MEQ 20 MEQ/1,000 ML BAG IV SCH (06:30)
--- NOTE | 2016-12-09 07:41 | Discharge Summary ---
Hospital Course - Hospital Course Hospital Course: 61-year-old female with history of previous colon resection colostomy with subsequent colostomy takedown had presented with acute nausea vomiting and predominantly left lower quadrant discomfort. CT scan of the abdomen demonstrated thickening of the small bowel loop which was contained in the left lower quadrant region with apparently mild associated inflammatory changes. She was observed and reported no bleeding but had a gradual decrease in her hemoglobin and hematocrit level following admission with a iron deficient anemia profile. She underwent upper endoscopy which showed a hiatal hernia no active bleeding site. Symptoms remitted during the hospital stay and vital signs remained stable. Diet was advanced and tolerated. Patient was offered colonoscopy during his hospital stay but preferred to have this performed as an outpatient. We will confirm scheduling with GI medicine for this study and for the short-term continue her oral antibiotics with the addition of proton pump inhibition. Diagnosis - Discharge Diagnosis (1) Abdominal pain Status: Acute (2) Diabetes mellitus Status: Chronic Discharge Plan - Discharge Data Disposition: Disch To Home/Self Care Condition at Discharge: Stable Discharge Diet: advance to your usual diet - Discharge Medications New Ciprofloxacin Inj [Cipro Inj] 400 mg IV Q12H metFORMIN [Glucophage] 500 mg PO BID W/MEALS tablet Pantoprazole Inj [Protonix Inj] 40 mg IV DAILY vial metroNIDAZOLE INJ [Flagyl Inj] 500 mg IV Q8H Continue metFORMIN [Glucophage] 500 mg PO BID W/MEALS Cetirizine Tab [ZyrTEC Tab] 10 mg PO DAILY PRN PRN Reason: Allergy Symptoms Escitalopram [Lexapro] 10 mg PO DAILY Discontinued Ibuprofen Tab [Motrin Tab] 200 mg PO BID - Follow Up or Referral - Forms/Instructions Exam - Constitutional Vitals: Period Temp Pulse Resp BP Sys/Lubin Pulse Ox Last 24 Hr 97.4 F-98.9 F 61-79 15-20 102-132/56-74 96-100 Discharge Results Procedures and tests throughout hospitalization: Pending Orders 12/06/16 14:45 Stool Culture Routine 12/06/16 18:46 Blood Culture Stat 12/08/16 14:45 Occult Blood, Stool Routine Labs on day of discharge: Labs from last 24 hours 12/09/16 12/08/16 12/08/16 00:26 18:10 15:03 WBC RBC Hgb Hct MCV MCH MCHC RDW Plt Count MPV Neut % (Auto) Lymph % (Auto) [place] % (Auto) Eos % (Auto) Baso % (Auto) Neut # (Auto) Lymph # (Auto) [place] # (Auto) Eos # (Auto) Baso # (Auto) Immature Gran % Nucleated RBC % Immature Gran # Nucleated RBCs # Platelet Estimate Hypochromasia Microcytosis Ovalocytes Sodium Potassium Chloride Carbon Dioxide Anion Gap BUN Creatinine GFR Calculation BUN/Creatinine Ratio Glucose POC Glucose 123 H 247 H 123 H Calculated Osmolality Calcium Phosphorus Magnesium Total Bilirubin AST ALT Alkaline Phosphatase Total Protein Albumin Globulin Albumin/Globulin Ratio 12/08/16 12/08/16 12/08/16 11:05 07:44 06:29 WBC RBC Hgb Hct MCV MCH MCHC RDW Plt Count MPV Neut % (Auto) Lymph % (Auto) [place] % (Auto) Eos % (Auto) Baso % (Auto) Neut # (Auto) Lymph # (Auto) [place] # (Auto) Eos # (Auto) Baso # (Auto) Immature Gran % Nucleated RBC % Immature Gran # Nucleated RBCs # Platelet Estimate Hypochromasia Microcytosis Ovalocytes Sodium 142 Potassium 4.6 Chloride 111 H Carbon Dioxide 21 Anion Gap 14.6 BUN 5 L Creatinine 0.60 GFR Calculation 101 BUN/Creatinine Ratio 8.00 Glucose 114 H POC Glucose 150 H 124 H Calculated Osmolality 280.1 Calcium 8.3 L Phosphorus 3.8 Magnesium 2.0 Total Bilirubin < 0.39 AST 14 ALT 12 L Alkaline Phosphatase 57 Total Protein 5.6 L Albumin 2.9 L Globulin 2.7 Albumin/Globulin Ratio 1.0 L 12/08/16 06:29 WBC 7.3 RBC 4.15 Hgb 8.1 L Hct 28.2 L MCV 68.0 L MCH 20 L MCHC 28.7 L RDW 17.9 H Plt Count 354 MPV 10.3 Neut % (Auto) 58.1 Lymph % (Auto) 27.8 [place] % (Auto) 8.3 Eos % (Auto) 4.6 Baso % (Auto) 0.7 Neut # (Auto) 4.3 Lymph # (Auto) 2.0 [place] # (Auto) 0.6 Eos # (Auto) 0.3 Baso # (Auto) 0.1 Immature Gran % 0.5 Nucleated RBC % 0.0 Immature Gran # 0.04 Nucleated RBCs # 0.00 Platelet Estimate Normal Hypochromasia 1+ Microcytosis 2+ Ovalocytes Slight Sodium Potassium Chloride Carbon Dioxide Anion Gap BUN Creatinine GFR Calculation BUN/Creatinine Ratio Glucose POC Glucose Calculated Osmolality Calcium Phosphorus Magnesium Total Bilirubin AST ALT Alkaline Phosphatase Total Protein Albumin Globulin Albumin/Globulin Ratio Preliminary micro results at discharge 12/06/16 18:46 Blood Culture - Preliminary Blood No growth at 1 day 12/06/16 18:33 Blood Culture - Preliminary Blood No growth at 1 day DS: Provider Date of admission: 12/06/16 19:25 Primary care physician: . No PCP Attending physician on admission: Denis Rhoades MD Consults: 12/07/16 07:55 Consult to Physician [CONS] Routine Comment: Consulting Provider: Logan Leos When should Consulting Provider be notified: Now Person Notified: SOCORRO Date Notified: 12/07/16 Time Notified: 09:10 Discharging clinician: Torrey Fan MD Expected date of discharge: 12/09/16
[2016-12-09] MEDS: ONDANSETRON 4 MG/2 ML VIAL IV PRN (08:04)
[2016-12-09] MEDS: metFORMIN 500 MG TABLET PO SCH (08:07)
[2016-12-09] MEDS: PANTOPRAZOLE 40 MG VIAL IV SCH (08:08)
[2016-12-09] MEDS: CIPROFLOXACIN INJ 400 MG in PREMIX 1 EACH IV SCH (08:18)
[2016-12-09 17:07] VITALS: BP 122/67
== END 2016-12-09 16:55 | disposition home or self-care (01) | DRG 392 ==
LOC: N.ED 15:13 → SUATTDRO 19:25 → N.EDINP 19:25 → N.2E 19:45
PROVIDERS: ADMIT Internal Medicine; ATTEND Internal Medicine Cardiovascular Disease